=== PATIENT | male | born 1950 | race Caucasian/White ===

== ENCOUNTER 2022-05-10 00:11 | Inpatient (IN) | payer MEDICARE ==
[2022-05-10 01:01] VITALS: BMI 25.9
[2022-05-10] MEDS ORDERED: HYDROcodone/Acetaminophen 5/325 mg Tablet PO PRN (01:19)
[2022-05-10] MEDS ORDERED: Senokot S 8.6-50 MG TAB PO PRN (01:19)
[2022-05-10] MEDS ORDERED: Morphine 4 MG/ML VIAL SLOW IVP PRN (01:19)
[2022-05-10] MEDS ORDERED: Acetaminophen 325 MG TAB PO PRN (01:19)
[2022-05-10] MEDS ORDERED: Rivaroxaban 10 MG TAB PO SCH ×2 (01:45→17:00)
[2022-05-10] MEDS: Sodium Chloride 0.9% 1,000 ML IV SCH ×2 (03:00→13:59)
[2022-05-10 05:17] LABS: #Basophils 0.1 10x3/uL (0.0-0.2); #Eosinphils 1.3 10x3/uL (0.0-0.5); #Monocytes 0.7 10x3/uL (0.0-1.1); #Neutrophils 4.7 10x3/uL (1.5-8.4); %Basophils 1.3 % (0.0-2.0); %Eosinophils 13.8 % (0.0-6.0); %Lymphocytes 25.8 % (18.0-47.0); %Monocytes 7.7 % (0.0-10.0); %Neutrophils 50.8 % (40.0-75.0); Hemoglobin 15.1 g/dL (13.5-17.5); Mean Corpuscular HGB CONC 33.4 g/dL (32.0-36.0); Mean Corpuscular Hemoglobin 31.3 pg (27.0-33.0); Mean Corpuscular Volume 93.8 fl (81.2-95.1); Mean Platelet Volume 10.8 fl (7.4-10.4); Platelet Count 149 10x3/uL (150-450); RBC Distribution Width 13.9 % (11.5-14.5); Red Blood Cell (RBC) Count 4.82 10x6/uL (4.32-5.72); White Blood Cell (WBC) Count 9.3 10x3/uL (3.5-10.5)
[2022-05-10 05:23] LABS: Anion Gap 14 mmol/L (10-20); BUN (Urea Nitrogen) 18 mg/dL (8.4-25.7); Calc. Creatinine Clearance 96 mL/min (70-130); Calcium 7.8 mg/dL (7.8-10.44); Carbon Dioxide 18 mmol/L (23-31); Chloride 111 mmol/L (98-107); Estimated GFR 95; Glucose 88 mg/dL (83-110); Magnesium 2.2 mg/dL (1.6-2.6); Potassium 3.8 mmol/L (3.5-5.1); Sodium 139 mmol/L (136-145); Troponin I 0.016 ng/mL (< 0.028)
[2022-05-10] MEDS: Meropenem 1 GM in Sodium Chloride 0.9% 100 ML IVPB SCH ×3 (06:02→20:50)
[2022-05-10] MEDS ORDERED: FLU VACC QS2022-23(65YR UP)/PF 240 MCG/0.7 ML SYRINGE IM ONE (09:00)
[2022-05-10] MEDS ORDERED: Lantus 1000 UNITS/10 ML VIAL SC SCH ×3 (09:00→21:00)
[2022-05-10] MEDS ORDERED: Enoxaparin Sodium 40 MG/0.4 ML SYRINGE SC SCH (09:00)
[2022-05-10] MEDS: Empagliflozin 25 MG TAB PO SCH (09:15)
[2022-05-10] MEDS: Lisinopril 20 MG TAB PO SCH (09:15)
[2022-05-10] MEDS: Cholecalciferol 1,000 UNITS (25 MCG) TAB PO SCH (09:15)
[2022-05-10] MEDS: Docusate 100 MG CAP PO SCH ×2 (09:15→20:50)
[2022-05-10] MEDS: Polyethylene Glycol 3350 17 GM Packet PO SCH (09:16)
[2022-05-10] MEDS: Vancomycin HCl 1 GM in Sodium Chloride 0.9% 250 ML 250 ML IVPB SCH (09:16)
[2022-05-10] MEDS ORDERED: Magnevist 469MG/ML 20 ML VIAL ONE (09:39)
[2022-05-10] MEDS: traMADol HCl 50 MG TAB PO SCH ×2 (14:00→20:45)
[2022-05-10] MEDS ORDERED: Diltiazem 125 MG in Sodium Chloride 0.9% 100 ML IVPB SCH ×2 (19:33→20:00)
[2022-05-11] MEDS: Vancomycin HCl 1 GM in Sodium Chloride 0.9% 250 ML 250 ML IVPB SCH (01:11)
[2022-05-11 05:19] LABS: Troponin I Less than 0.010 ng/mL (< 0.028)
[2022-05-11] MEDS: Sodium Chloride 0.9% 1,000 ML IV SCH (05:20)
[2022-05-11] MEDS: Meropenem 1 GM in Sodium Chloride 0.9% 100 ML IVPB SCH (06:21)
[2022-05-11 08:37] VITALS: TEMP 98.1
[2022-05-11] MEDS: Lisinopril 20 MG TAB PO SCH (08:38)
[2022-05-11] MEDS: Cholecalciferol 1,000 UNITS (25 MCG) TAB PO SCH (08:38)
[2022-05-11] MEDS: traMADol HCl 50 MG TAB PO SCH ×2 (08:39→15:00)
[2022-05-11] MEDS: Polyethylene Glycol 3350 17 GM Packet PO SCH (08:39)
[2022-05-11] MEDS: Docusate 100 MG CAP PO SCH (08:44)
[2022-05-11] MEDS: Empagliflozin 25 MG TAB PO SCH (08:50)
[2022-05-11] MEDS ORDERED: glipiZIDE 10 MG TAB PO SCH (09:00)
[2022-05-11] MEDS ORDERED: ALPRAZolam 1 MG TAB PO SCH (09:00)
[2022-05-11] MEDS ORDERED: Rivaroxaban 10 MG TAB PO SCH (09:00)
[2022-05-11] MEDS ORDERED: Empagliflozin 25 MG TAB PO SCH (09:00)
[2022-05-11] MEDS ORDERED: Amoxicillin/Potassium Clav 875 MG TAB PO SCH (09:00)
[2022-05-11] MEDS ORDERED: Lisinopril 20 MG TAB PO SCH (09:00)
[2022-05-11 12:55] VITALS: BP 106/52
[2022-05-11] MEDS ORDERED: Lantus 1000 UNITS/10 ML VIAL SC SCH (21:00)
== END 2022-05-11 16:10 | disposition home or self-care (01) | DRG 638 ==
LOC: CSHTELE 00:11
PROVIDERS: ADMIT Family Medicine; ATTEND Internal Medicine
DX: E11.628 Type 2 diabetes mellitus with other skin complications (principal); R78.81 Bacteremia; I48.91 Unspecified atrial fibrillation; Z79.4 Long term (current) use of insulin; Z79.899 Other long term (current) drug therapy; E11.42 Type 2 diabetes mellitus with diabetic polyneuropathy; F17.290 Nicotine dependence, other tobacco product, uncomplicated; L08.9 Local infection of the skin and subcutaneous tissue, unspecified; D75.1 Secondary polycythemia
CPT/HCPCS: 36415; 36416; 80048; 83735; 84484; 85025; 93005; 93010; 93306; 97139; A9579; J1815; J2185; J3370; J3490; J7050